=== PATIENT | female | born 1975 | race African-American/Black ===

== ENCOUNTER 2024-05-28 22:59 | Emergency (ER) | payer MEDICAID, OTHER ==
[~2024-05-28] VITALS: Ht 154.9 cm; Wt 105.0 kg
[2024-05-28 23:15] VITALS: O2SAT 98
[2024-05-28] MEDS: CLONIDINE 0.2MG TABLET PO ONE (23:30)
[2024-05-29] MEDS: CLONIDINE 0.1MG TABLET PO NR (00:15)
[2024-05-29] MEDS: AMLODIPINE 5MG TABLET PO NR (01:15)
[2024-05-29 01:30] LABS: BASOPHILS % 0.7 % (0.0-2.0); DIFFERENTIAL COMMENT 0; EOSINOPHILS % 0.2 % (0.0-5.0); HEMATOCRIT. 36.2 % (36.0-48.0); HEMOGLOBIN. 11.5 g/dL (12.0-16.0); LYMPHOCYTES % 19.7 % (20.0-50.0); MEAN CORPUSCULAR HGB CONC 31.6 g/dL (31.0-37.0); MEAN CORPUSCULAR VOLUME 75.9 fL (81.0-99.0); MEAN PLATELET VOLUME 7.4 fl (7.4-10.4); MONOCYTES % 4.7 % (2.0-8.0); NEUTROPHILS % 74.7 % (40.0-76.0); PLATELET 347 x1000/uL (130-400); RED BLOOD CELL COUNT 4.77 mill/uL (4.2-5.4); RED CELL DISTRIBUTION WIDTH 15.4 % (11.6-14.6); WHITE BLOOD COUNT 7.6 x1000/uL (4.5-11.0)
[2024-05-29 01:39] LABS: POTASSIUM 4.3 mEq/L (3.5-5.1); SODIUM 137 mEq/L (136-145)
[2024-05-29 01:40] LABS: CARBON DIOXIDE 25 mEq/L (21-32); CHLORIDE 106 mEq/L (98-107)
[2024-05-29 01:41] LABS: CALCIUM 9.5 mg/dL (8.7-10.4)
[2024-05-29 01:46] LABS: CREATININE 0.9 mg/dL (0.6-1.0); GLUCOSE 77 mg/dL (70-105); UREA NITROGEN BLOOD 9 mg/dL (9-23)
[2024-05-29 01:48] LABS: ACETAMINOPHEN < 2 ug/mL (10-30)
[2024-05-29 02:09] LABS: TROPONIN I HIGH SENSITIVITY < 4 ng/L (3.0-34)
[2024-05-29 02:10] LABS: ETHANOL BLOOD < 10 mg/dL (<10)
[2024-05-29 02:14] LABS: CLARITY URINE CLEAR (CLEAR); COLOR URINE YELLOW (YELLOW); GLUCOSE URINE NEGATIVE (NEGATIVE); KETONES URINE TRACE (NEGATIVE); LEUKOCYTE ESTERASE URINE NEGATIVE (NEGATIVE); NITRITE URINE NEGATIVE (NEGATIVE); OCCULT BLOOD URINE NEGATIVE (NEGATIVE); PROTEIN URINE NEGATIVE (NEGATIVE); SPECIFIC GRAVITY URINE 1.023 (1.005-1.030)
[2024-05-29 02:32] LABS: HCG SCREEN NEGATIVE
[2024-05-29 02:36] LABS: *AMPHETAMINES SCREEN URINE NEGATIVE (NEGATIVE); *BARBITURATES SCREEN URINE NEGATIVE (NEGATIVE); *BENZODIAZEPINES SCREEN URINE NEGATIVE (NEGATIVE); *COCAINE SCREEN URINE NEGATIVE (NEGATIVE); CANNABINOID URINE SCREEN PRESUMPTIVE POSITIVE (NEGATIVE); ECSTASY MDMA SCREEN URINE NEGATIVE (NEGATIVE); METHADONE URINE SCREEN Pos (NEGATIVE); OPIATES URINE SCREEN NEGATIVE (NEGATIVE); PHENCYCLIDINE URINE SCREEN PRESUMTIVE POSITIVE (NEGATIVE)
[2024-05-29] MEDS: AMLODIPINE 5MG TABLET PO SCH (11:35)
[2024-05-30] MEDS: OLANZAPINE 5MG TABLET PO SCH (09:00)
[2024-05-30 14:56] VITALS: BP 130/79; PULSE 92; RESP 19; TEMP 36.72516; O2SAT 99
== END 2024-05-30 15:48 ==
LOC: ER 22:59
DX: R45.851 Suicidal ideations (principal); I10 Essential (primary) hypertension; F14.90 Cocaine use, unspecified, uncomplicated; F20.9 Schizophrenia, unspecified
CPT/HCPCS: 36415; 71045; 80048; 80305; 80307; 80320; 80329; 81003; 84484; 84703; 85025; 87426; 93005; 99285; G0480